=== PATIENT | male | born 1955 | race Caucasian/White ===

== ENCOUNTER 2024-04-06 21:09 | Emergency (ER) | payer OTHER, MEDICARE ==
[2024-04-06 21:32] LABS: BASOPHILS PERCENT AUTO 0.1 % (0.2-1.2); EOSINOPHILS ABSOLUTE AUTO 0.2 x10^3/uL (0.0-0.5); EOSINOPHILS PERCENT AUTO 2.3 % (0.0-4.0); HEMATOCRIT 44.9 % (40.0-52.0); HEMOGLOBIN 15.2 g/dL (14.0-18.0); IMMATURE GRAN ABSOLUTE AUTO 0.01 x10^3/uL (0.00-0.07); LYMPHOCYTES ABSOLUTE AUTO 1.3 x10^3/uL (1.0-4.8); LYMPHOCYTES PERCENT AUTO 17.3 % (25.0-50.0); MEAN CORPUSCULAR HEMOGLOBIN 32.6 pg (26.0-32.0); MEAN CORPUSCULAR HGB CONC 33.9 g/dL (32.0-36.0); MEAN CORPUSCULAR VOLUME 96.4 fL (78.0-93.0); MONOCYTES ABSOLUTE AUTO 0.6 x10^3/uL (0.0-0.8); MONOCYTES PERCENT AUTO 7.3 % (2.0-11.0); NEUTROPHILS ABSOLUTE AUTO 5.5 x10^3/uL (1.8-7.7); NEUTROPHILS PERCENT AUTO 72.9 % (50.0-80.0); PLATELET COUNT,PLT 171 x10^3/uL (130-400); RED BLOOD CELL COUNT 4.66 x10^6/uL (4.5-6.0); WHITE BLOOD CELL COUNT,WBC 7.5 x10^3/uL (4.0-10.0)
[2024-04-06] MEDS: HYDROmorphone 1 MG/ML Syringe IVPUSH ONE (21:38)
[2024-04-06] MEDS: Ondansetron 4 MG/2 ML SDV IVPUSH ONE (21:38)
[2024-04-06 21:57] LABS: A/G RATIO 1.09; ALANINE AMINOTRANSFERASE,ALT 15 U/L (16-63); ALBUMIN 3.7 g/dL (3.4-5.0); ALKALINE PHOSPHATASE 81 U/L (46-116); ASPARTATE AMNIOTRANSFERASE,AST 15 U/L (15-37); BILIRUBIN TOTAL 0.3 mg/dL (0.2-1.0); BLOOD UREA NITROGEN,BUN 13 mg/dL (7-18); CALCIUM 9.2 mg/dL (8.5-10.1); CARBON DIOXIDE,CO2 28 mmol/L (21-32); CHLORIDE,CL 98 mmol/L (98-107); GLUCOSE RANDOM 95 mg/dL (70-99); LIPASE 35 U/L (19-71); MAGNESIUM 1.9 mg/dL (1.8-2.4); PROTEIN TOTAL,TP 7.1 g/dL (6.4-8.2); SODIUM,NA 135 mmol/L (136-145)
[2024-04-06 22:05] LABS: ESTIMATED GFR 81 mL/min (>=60)
[2024-04-06] MEDS: Lactated Ringers 1,000 ML IV ONE (22:17)
[2024-04-06] MEDS: Iopamidol 612 MG/ML 100 ML Bottle IVPUSH ONE (22:49)
[2024-04-06 23:22] LABS: APPEARANCE,URINE CLEAR (CLEAR); BILIRUBIN,URINE NEGATIVE (NEGATIVE); COLOR,URINE YELLOW (YELLOW); GLUCOSE,URINE 500 mg/dL (NEGATIVE); KETONES,URINE NEGATIVE (NEGATIVE); LEUKOCYTE ESTERASE,URINE TRACE (NEGATIVE); NITRITE,URINE NEGATIVE (NEGATIVE); OCCULT BLOOD,URINE NEGATIVE (NEGATIVE); PROTEIN,URINE NEGATIVE (NEGATIVE); UROBILINOGEN,URINE 0.2 EU/dL (0.2)
[2024-04-06 23:24] LABS: BACTERIA,URINE OCCASIONAL /HPF (NOT SEEN); MUCUS,URINE OCCASIONAL /LPF (NOT SEEN); RBC,URINE 0-5 /HPF (NOT SEEN)
[2024-04-06] MEDS: Magnesium Citrate Solution 296 ML Bottle PO ONE (23:44)
[2024-04-06] MEDS: Ketorolac 15 MG/ML SDV IVPUSH ONE (23:45)
[2024-04-06] MEDS: Morphine 2 MG/ML SYRINGE IVPUSH ONE (23:45)
[2024-04-07] MEDS: Ondansetron 4 MG in Sodium Chloride 0.9% 100 ML IV ONE (00:12)
== END 2024-04-07 | disposition home or self-care (01) ==
LOC: VM.ED 21:09
DX: K59.00 Constipation, unspecified (principal); I95.9 Hypotension, unspecified; J44.9 Chronic obstructive pulmonary disease, unspecified; F17.200 Nicotine dependence, unspecified, uncomplicated; Z79.84 Long term (current) use of oral hypoglycemic drugs; Z79.899 Other long term (current) drug therapy; Z79.82 Long term (current) use of aspirin; Z79.51 Long term (current) use of inhaled steroids
CPT/HCPCS: 74177; 80053; 81001; 83690; 83735; 84484; 85025; 87086; 94760; 96361; 96374; 96375; 99285; J1170; J1885; J2270; J2405; J7120; Q9967; 36415; 93010; 99284